=== PATIENT | female | born 2000 | race Two or more races ===

== ENCOUNTER 2023-06-28 16:45 | Emergency (ER) | payer OTHER ==
[~2023-06-28] VITALS: Ht 165.1 cm; Wt 93.9 kg
[2023-06-28] MEDS ORDERED: QUETIAPINE FUM150 MG PO (17:18)
[2023-06-28 19:27] LABS: HEMOGLOBIN 11.5 g/dL (12.0-15.00); MEAN CELL VOLUME 85.3 fL (80.00-100.00); MEAN CORPUSCULAR HEMOGLOBIN 29.6 pg (27.00-32.0); MEAN CORPUSCULAR HGB CONC 34.7 g/dl (32.0-36.0); PLATELET COUNT 240 K/uL (150-450); RED BLOOD COUNT 3.87 M/uL (4.00-6.00); RED CELL DISTRIBUTION WIDTH 13.6 % (11.5-14.5)
== END 2023-06-28 20:28 | disposition home or self-care (01) ==
LOC: ER 16:46
PROVIDERS: General Practice
DX: O98.512 Other viral diseases complicating pregnancy, second trimester (principal); Z3A.20 20 weeks gestation of pregnancy; U07.1 COVID-19

== ENCOUNTER 2023-09-17 19:55 | Outpatient (CLI) | payer OTHER ==
[~2023-09-17 19:55] MED LIST: QUETIAPINE FUM150 MG PO
[2023-09-17] MEDS ORDERED: AMPICILLIN SODIUM 2,000 MG VIAL IV STA (20:00)
[2023-09-17] MEDS ORDERED: RINGERS SOLUTION,LACTATED 1,000 ML IV SCH (20:00)
[2023-09-17] MEDS ORDERED: TERBUTALINE SULFATE 1 MG/ML AMPUL SUBCUTANEO ONE (20:00)
[2023-09-17] MEDS ORDERED: AMPICILLIN SODIUM 1,000 MG VIAL IV SCH (20:00)
[2023-09-17 20:31] LABS: URINE APPEARANCE Cloudy; URINE BILIRRUBIN Negative (NEGATIVE); URINE BLOOD Small; URINE COLOR Yellow; URINE GLUCOSE Negative (NEGATIVE); URINE LEUKOCYTE Trace; URINE NITRATE Negative; URINE PROTEIN 30 (NEGATIVE); URINE UROBILINOGEN 0.2 E.U./dl
[2023-09-17 20:36] LABS: URINE BACTERIA 2726.6 uL (0.0-1933); URINE RBC 14.8 uL (0.0-20.8)
[2023-09-17 20:36] LABS: HEMATOCRIT 35.3 % (36.0-45.00); HEMOGLOBIN 12.4 g/dL (12.0-15.00); MEAN CELL VOLUME 86.2 fL (80.00-100.00); MEAN CORPUSCULAR HEMOGLOBIN 30.2 pg (27.00-32.0); PLATELET COUNT 246 K/uL (150-450); RED CELL DISTRIBUTION WIDTH 14.1 % (11.5-14.5)
[2023-09-17 21:12] LABS: URINE EPITHELIAL CELLS > 201.7 uL (0.0-38.8)
[2023-09-17] MEDS ORDERED: PRENATAL TABLE1 EAC1 PO (22:21)
[2023-09-17] MEDS ORDERED: QUETIAPINE FUM200 MG PO (22:27)
[2023-09-18] MEDS ORDERED: QUETIAPINE FUMARATE 100 MG TABLET PO SCH (21:00)
== END 2023-09-18 09:35 | disposition home or self-care (01) ==
LOC: OBS/DEL 19:55
PROVIDERS: ATTEND Specialist
DX: O98.813 Other maternal infectious and parasitic diseases complicating pregnancy, third trimester (principal); O23.593 Infection of other part of genital tract in pregnancy, third trimester; B37.9 Candidiasis, unspecified; Z3A.32 32 weeks gestation of pregnancy

== ENCOUNTER 2023-10-31 11:01 | Inpatient (IN) | payer OTHER ==
[~2023-10-31] VITALS: Ht 167.6 cm; Wt 5.0 kg
[~2023-10-31 11:01] MED LIST changes: +PRENATAL TABLE1 EAC1 PO; +QUETIAPINE FUM200 MG PO
[2023-10-31 12:58] LABS: HEMATOCRIT 40.1 % (36.0-45.00); HEMOGLOBIN 13.6 g/dL (12.0-15.00); MEAN CELL VOLUME 87.2 fL (80.00-100.00); MEAN CORPUSCULAR HEMOGLOBIN 29.6 pg (27.00-32.0); PLATELET COUNT 188 K/uL (150-450); RED CELL DISTRIBUTION WIDTH 14.4 % (11.5-14.5)
[2023-10-31 12:59] LABS: PH,URINE 5.5 (5.0-8.0); URINE APPEARANCE Turbid; URINE BILIRRUBIN Negative (NEGATIVE); URINE BLOOD Negative; URINE COLOR Dark Yellow; URINE GLUCOSE Negative (NEGATIVE); URINE KETONE Trace (NEGATIVE); URINE LEUKOCYTE Trace; URINE NITRATE Negative; URINE UROBILINOGEN 0.2 E.U./dl
[2023-10-31 13:01] LABS: URINE CAST 1.83 uL (0.0-1.40); URINE RBC 11.1 uL (0.0-20.8); URINE WBC 295.1 uL (0.0-23.2)
[2023-10-31 13:41] LABS: INR 0.94; PARTIAL THROMBOPLASTIN TIME 30.5 SECONDS (22.0-34.0); PROTHROMBIN TIME 10.3 SECONDS (9.0-11.5)
[2023-10-31 13:45] LABS: ALBUMIN 2.6 gm/dL (3.4-5.0); BILIRUBIN TOTAL 0.49 mg/dL (0.3-1.2); CALCIUM 9.3 mg/dL (8.5-10.1); CREATININE SERUM 0.74 mg/dL (0.55-1.02); GFR 95.62; GLOBULINA 3.6 G/DL (2.4-3.5); POTASSIUM 3.96 mEq/L (3.5-5.1); TOTAL PROTEIN 6.2 gm/dL (6.4-8.2)
[2023-10-31 13:54] LABS: URINE BACTERIA > 9821.5 uL (0.0-1933); URINE CRYSTALS FEW /HPF; URINE EPITHELIAL CELLS > 201.7 uL (0.0-38.8); URINE PROTEIN 100 (NEGATIVE)
[2023-11-02] MEDS ORDERED: QUETIAPINE FUM400 M1 PO (05:50)
[2023-11-02] MEDS ORDERED: QUETIAPINE FUM200 M1 PO (05:52)
[2023-11-02] MEDS ORDERED: QUETIAPINE FUM200 MG PO (05:54)
[2023-11-02] MEDS ORDERED: OXYTOCIN 10 UNITS/ML VIAL ONE (10:18)
[2023-11-02] MEDS ORDERED: ERYTHROMYCIN BASE 1 GM TUBE OP ONE (10:18)
[2023-11-02] MEDS ORDERED: CEFAZOLIN SODIUM 1,000 MG VIAL ONE ×2 (10:36→13:06)
[2023-11-02] MEDS ORDERED: RINGERS SOLUTION,LACTATED 1,000 ML IV SCH (12:15)
[2023-11-02] MEDS ORDERED: MEPERIDINE HCL/PF 50 MG/ML VIAL IM PRN (12:15)
[2023-11-02] MEDS ORDERED: PROMETHAZINE HCL 50 MG/ML AMPUL IM PRN (12:15)
[2023-11-02] MEDS ORDERED: CEFAZOLIN SODIUM 1,000 MG VIAL IV ONE (12:45)
[2023-11-02] MEDS ORDERED: MORPHINE SULFATE 4 MG/ML VIAL IV ONE (13:30)
[2023-11-02] MEDS ORDERED: PROMETHAZINE HCL 50 MG/ML AMPUL IM ONE (13:44)
[2023-11-02] MEDS ORDERED: CEFAZOLIN SODIUM 1,000 MG VIAL IV SCH (14:00)
[2023-11-02] MEDS ORDERED: KETOROLAC TROMETHAMINE 60 MG VIAL IM NR (19:00)
[2023-11-03 03:03] LABS: HEMATOCRIT 37.5 % (36.0-45.00); HEMOGLOBIN 12.6 g/dL (12.0-15.00); MEAN CELL VOLUME 86.7 fL (80.00-100.00); MEAN CORPUSCULAR HGB CONC 33.5 g/dl (32.0-36.0); PLATELET COUNT 176 K/uL (150-450); RED BLOOD COUNT 4.33 M/uL (4.00-6.00); RED CELL DISTRIBUTION WIDTH 14.1 % (11.5-14.5)
[2023-11-03] MEDS ORDERED: PNV,CALCIUM 72/IRON/FOLIC ACID 1 TAB TABLET PO SCH (09:00)
[2023-11-03] MEDS ORDERED: OxyCODONE HCL/APAP UD (PERCOCET) PO SCH (09:00)
[2023-11-04] MEDS ORDERED: HYDROCORTISONE 2.5% 30 GM TUBE TOP SCH (13:00)
[2023-11-04] MEDS ORDERED: BISACODYL 10 MG/SUPP.RECT SUPP.RECT RECTAL ONE (21:15)
[2023-11-04] MEDS ORDERED: IBUprofen 600 MG TABLET PO PRN (21:15)
[2023-11-05] MEDS ORDERED: IBUPROFEN800 MG PO (08:10)
== END 2023-11-05 10:49 | disposition home or self-care (01) | DRG 788 ==
LOC: O/R 11-02 05:19 → LDR 11-02 11:00 → OB/GYN 11-02 12:00 → LDR 11-02 12:00 → OB/GYN 11-02 13:20
PROVIDERS: ADMIT Specialist; ATTEND Specialist
PROC: 4A1HXCZ Monitoring of Products of Conception, Cardiac Rate, External Approach (ICD-10-PCS; 2023-11-02)
PROC: 10D00Z1 Extraction of Products of Conception, Low, Open Approach (ICD-10-PCS; principal; 2023-11-02 11:00)
DX: O32.2XX0 Maternal care for transverse and oblique lie, not applicable or unspecified (principal); O36.63X0 Maternal care for excessive fetal growth, third trimester, not applicable or unspecified; Z3A.38 38 weeks gestation of pregnancy; Z37.0 Single live birth; Z20.822 Contact with and (suspected) exposure to COVID-19

== ENCOUNTER 2023-11-20 19:32 | Emergency (ER) | payer OTHER ==
[~2023-11-20] VITALS: Ht 167.6 cm; Wt 97.5 kg
[~2023-11-20 19:32] MED LIST changes: +IBUPROFEN800 MG PO; +QUETIAPINE FUM200 M1 PO; +QUETIAPINE FUM400 M1 PO
[2023-11-20] MEDS ORDERED: CEFTRIAXONE SODIUM 1,000 MG VIAL IV ONE (20:15)
[2023-11-20] MEDS ORDERED: CEFTRIAXONE SODIUM 1,000 MG VIAL ONE (20:19)
== END 2023-11-20 20:39 | disposition home or self-care (01) ==
LOC: ER 19:34
DX: O86.09 Infection of obstetric surgical wound, other surgical site (principal)

== ENCOUNTER 2023-12-12 18:57 | Emergency (ER) | payer OTHER ==
[~2023-12-12] VITALS: Ht 167.6 cm; Wt 98.4 kg
== END 2023-12-12 20:06 | disposition home or self-care (01) ==
LOC: ER 18:59
DX: O90.9 Complication of the puerperium, unspecified (principal)

== ENCOUNTER 2023-12-14 16:37 | Emergency (ER) | payer OTHER ==
[~2023-12-14] VITALS: Ht 167.6 cm; Wt 98.4 kg
== END 2023-12-14 18:22 | disposition home or self-care (01) ==
LOC: ER 16:39
DX: R23.8 Other skin changes (principal); Z98.890 Other specified postprocedural states